=== PATIENT | female | born 2000 | race African-American/Black ===

== ENCOUNTER 2018-09-12 08:17 | Emergency (ER) | payer OTHER ==
[~2018-09-12] VITALS: Ht 162.6 cm; Wt 52.3 kg
[2018-09-12] MEDS ORDERED: ACETAMINOPHEN/CODEINE 300-30 MG TABLET PO ONE (10:00)
[2018-09-12] MEDS ORDERED: KETOROLAC TROMETHAMINE 60 MG/2 ML VIAL IM ONE (10:00)
[2018-09-12 10:58] VITALS: BP 120/69
== END 2018-09-12 12:04 | disposition home or self-care (01) ==
LOC: EMS 08:19
DX: M43.6 Torticollis (principal)
CPT/HCPCS: 72040; 96372; 99283; J1885

== ENCOUNTER 2019-12-29 09:58 | Emergency (ER) | payer OTHER ==
[~2019-12-29] VITALS: Ht 162.6 cm; Wt 50.9 kg
[2019-12-29] MEDS ORDERED: LIDOCAINE 1% 10 ML VIAL INJ ONE (11:30)
[2019-12-29] MEDS ORDERED: BACITRACIN 0.9 GM PACKET OINTMENT TP ONE (11:30)
[2019-12-29 12:19] VITALS: BP 103/60
== END 2019-12-29 12:23 | disposition home or self-care (01) ==
LOC: EMS 09:58
DX: S61.411A Laceration without foreign body of right hand, initial encounter (principal); W26.8XXA Contact with other sharp object(s), not elsewhere classified, initial encounter; Y93.89 Activity, other specified; Y92.89 Other specified places as the place of occurrence of the external cause; Y99.8 Other external cause status
CPT/HCPCS: 12002; 99282; J3490

== ENCOUNTER 2020-01-21 15:11 | Emergency (ER) | payer OTHER ==
[~2020-01-21] VITALS: Ht 162.6 cm; Wt 50.9 kg
[2020-01-21 15:16] VITALS: BP 128/76
== END 2020-01-21 15:28 | disposition home or self-care (01) ==
LOC: EMS 15:14
DX: S61.210D Laceration without foreign body of right index finger without damage to nail, subsequent encounter (principal); X58.XXXD Exposure to other specified factors, subsequent encounter
CPT/HCPCS: Z7502